=== PATIENT | female | born 1980 | race Caucasian/White ===

== ENCOUNTER 2016-10-29 16:18 | Emergency (ER) | payer BC ==
[2016-10-29] MEDS ORDERED: ORPHENADRINE 60 MG/2 ML AMP ONE (17:06)
[2016-10-29] MEDS ORDERED: DILAUDID 1 MG/ML AMP ONE ×2 (17:06→18:25)
[2016-10-29] MEDS ORDERED: ONDANSETRON 4 MG VIAL ONE (17:06)
[2016-10-29] MEDS ORDERED: KETOROLAC 30 MG/ML VIAL ONE (18:25)
== END 2016-10-29 19:06 | disposition home or self-care (01) ==
LOC: ER 16:18
CPT/HCPCS: 72100; 81003; 81025; 96374; 96375; 96376